=== PATIENT | female | born 1935 | race Caucasian/White ===

== ENCOUNTER 2020-01-16 09:24 | Inpatient (IN) | payer MEDICARE, BC ==
[2020-01-16] MEDS ORDERED: HYDROmorphone 0.5 MG/0.5 ML SYRINGE IVP PRN (13:22)
--- NOTE | 2020-01-16 14:36 | CONS ---
CONSULTATION CHIEF COMPLAINT: Preop cardiac evaluation. HISTORY OF PRESENT ILLNESS: This is an 84-year-old lady with history of permanent pacemaker, mild nonobstructive coronary artery disease, dyslipidemia, hypothyroidism, who was admitted to hospital with left hip fracture and Cardiology has been consulted for preop cardiac evaluation. At the time of my evaluation, patient appears comfortable at rest. She denies chest pain, difficulty in breathing, leg edema, PND or orthopnea. The patient has known coronary artery disease and then a cardiac catheterization in 2016 was found to have mild to moderate disease involving right coronary artery, but was otherwise within normal limits. I do not have an EKG on this admission. We are going to get one and I also gave him trying to get an echocardiogram done. But patient is stable to go through surgery. She does not have any cardiac symptoms and did not have any prior to coming in. Does not have leg edema. She is not short of breath. She is not having angina. Physical exam does not reveal aortic stenosis. The patient has a pacemaker and follows with a healthcare economics consultant that is at [facility]. PAST MEDICAL HISTORY: Significant for hypothyroidism, dyslipidemia, permanent pacemaker. Past medical history also includes aortic aneurysm. MEDICATIONS: Medications at home include Zocor 40 q. daily, Prilosec, Lexapro, K-Ina con, Coreg, Synthroid Imdur, Lasix, Plavix and aspirin. ALLERGIES: ALLERGIC TO SULFA. FAMILY HISTORY: Negative for premature coronary artery disease. SOCIAL HISTORY: Negative for smoking, EtOH abuse, or drug abuse. REVIEW OF SYSTEMS: HEENT is unremarkable.. CARDIAC as described above. RESPIRATORY as described above. GI negative. : Negative. ALLERGY/IMMUNOLOGY: Negative. SKIN negative. MUSCULOSKELETAL significant for hip fracture. PSYCHOSOCIAL negative. ENDOCRINE: Negative. DERM negative. CONSTITUTIONAL: Negative. ONCOLOGICAL negative. EXAM: The patient is comfortable at rest. Afebrile. Heart rate is 65 beats per minute. Blood pressure is 95/55, respiratory rate 18. There is no jugular venous distention. Carotid upstroke is normal. There is no bruit. Chest exam reveals good air entry bilaterally. Heart exam reveals first and second heart sounds. No gallop. No murmur. No rub. Abdomen is soft, nontender. Exam of extremities did not reveal any edema. Peripheral pulses are felt. LAB: I do not have any labs on her from this admission. An EKG done at the other hospital showed paced rhythm with secondary ST-T wave changes. ASSESSMENT: 1. Preop cardiac evaluation. 2. Mild nonobstructive coronary artery disease. 3. Status post permanent pacemaker. 4. History of aortic aneurysm. PLAN: The patient is stable to undergo left hip replacement at this time. I will obtain a 2D echo to document her LV function, but this should not delay her surgery. Go ahead and proceed with surgery tomorrow if you need to do it. Thank you for giving me the privilege to participate in the care of this pleasant lady. MMJOL / IJN: [id number] /
[2020-01-16] MEDS: SODIUM CHLORIDE 0.9% 1,000 ML IV SCH (17:26)
[2020-01-16] MEDS: POTASSIUM CHLORIDE ER 20 MEQ TAB.ER PO SCH (17:26)
[2020-01-16] MEDS: HYDROcodone/APAP 5-325MG 1 EACH TAB PO PRN ×2 (17:26→22:13)
[2020-01-16] MEDS: CARVEDILOL 6.25 MG TAB PO SCH (17:27)
[2020-01-16] MEDS: ATORVASTATIN 20 MG TAB PO SCH (17:27)
[2020-01-16] MEDS: FUROSEMIDE 20 MG TAB PO SCH (17:27)
--- NOTE | 2020-01-17 09:37 | P.HPOR ---
<Cezar Barillas - Last Filed: 01/17/20 09:28> History of Present Illness H&P Date: 01/17/20 Chief Complaint: Left hip pain status post fall Patient is a very pleasant 84-year-old female who is seen and examined at bedside for further evaluation for her known left intertrochanteric hip fr acture. Patient sustained a fall yesterday, 01/16/2020. Patient states she is unsure how or why she fell. She does not lose consciousness. She has had significant pain in her left hip since that time. She's been unable to ambulate since that time. She was taken to the [facility]. She was unable to have immediate treatment at that time. She was transferred to [facility]. She was seen and examined by cardiology and has been cleared for surgical intervention. Patient does have a history of pacemaker and stent placement. She is on Plavix for anticoagulation. She states she had been on Plavix previously which was discontinued and she was started on aspirin. Patient states after starting aspirin she experienced a TIA. Aspirin was stopped and she was restarted on Plavix. She was seen and examined yesterday at bedside by Dr. Fam. Surgery is planned for today, 01/17/2020, at 10 AM. Patient feels she is ready for surgical intervention is looking forward to surgery at her left hip. Surgery planned is a left intramedullary nail fixation for intertrochanteric hip fracture. Patient states she does have a walker and cane at home. She will need a prescription for a hospital bed at the time of discharge. She is planning for discharge home. She has lots of help at home. Patient's medical history also includes hypothyroidism and dyslipidemia. Appropriate labs were taken at [facility] and those reports were transferred with her to [facility]. Those lab results have been discussed with anesthesia. 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 History of Any Multi-Drug Resistant Organisms: None Reported Past Surgical History: Appendectomy, Bladder Surgery, Cardiac Ablation, Hernia Repair, Hysterectomy, Pacemaker Additional Past Surgical History / Comment(s): 06-21-15 LT SHOULDER ZEINA ARTHROPLASTY with galdamez resurfacing system,, rt ear drum rebuilt,pacemaker 2009 then generator change 11-30-13, ep study cardiac ablation Past Anesthesia/Blood Transfusion Reactions: No Reported Reaction Date of Last Stent Placement:: 2007 Type of Cardiac Device: Permanent Pacemaker Device Placement Date:: 11/30/13 Past Psychological History: No Psychological Hx Reported Smoking Status: Former smoker Past Alcohol Use History: None Reported Additional Past Alcohol Use History / Comment(s): per past medical hx smoked x 30 years 1 carton would last a week, quit [id number] Past Drug Use History: None Reported - Past Family History Mother Family Medical History: Diabetes Mellitus Additional Family Medical History / Comment(s): age 66 Father Family Medical History: Coronary Artery Disease (CAD) Additional Family Medical History / Comment(s): aneurysm Brother(s) Family Medical History: Cancer Medications and Allergies Home Medications Medication Instructions Recorded Confirmed Type Clopidogrel [Plavix] 75 mg PO DAILY@49902/04/15 01/16/20 History Levothyroxine Sodium [Synthroid] 100 mcg PO DAILY@49902/04/15 01/16/20 History Simvastatin [Zocor] 40 mg PO DAILY@169902/04/15 01/16/20 History Potassium Chloride [Klor-Con 20] 20 meq PO BID@0500,1700 08/30/16 01/16/20 History Aspirin EC [Ecotrin Low Dose] 81 mg PO DAILY@49901/16/20 01/16/20 History Carvedilol [Coreg] 6.25 mg PO BID@0500,169901/16/20 01/16/20 History Escitalopram Oxalate [Lexapro] 10 mg PO DAILY@49901/16/20 01/16/20 History Furosemide [Lasix] 20 mg PO BID@0500,169901/16/20 01/16/20 History Isosorbide Mononitrate ER [Imdur] 30 mg PO DAILY@49901/16/20 01/16/20 History Omeprazole [PriLOSEC] 40 mg PO DAILY@0500 01/16/20 01/16/20 History Allergies Allergy/AdvReac Type Severity Reaction Status Date / Time Sulfa (Sulfonamide Allergy Anaphylaxis Verified 01/16/20 11:58 Antibiotics) Physical Examination Physical exam: Patient is awake, alert, and oriented 3 Vital signs stable Good chest excursion with deep inspiration and expiration Left lower extremity is shortened and externally rotated Evidence of some bruising over the left posterior hip Pain with palpation of the left hip Significant pain with internal and external rotation of the left hip No pain with internal and external rotation of the right hip Neurovascularly intact bilateral lower extremities Dorsiflexion, plantarflexion, and extensor hallucis longus positive sustained bilaterally Calves are soft and supple; No signs or symptoms of DVT; No calf pain Assessment and Plan Assessment: Assessment: Left intertrochanteric hip fracture Left hip pain Status post fall Currently on anticoagulation History of pacemaker placement History of stent placement History of TIA Dyslipidemia Hypothyroidism (1) Intertrochanteric fracture of left hip Current Visit: Yes Status: Acute Code(s): S72.142A - DISPLACED INTERTROCHANTERIC FRACTURE OF LEFT FEMUR, INIT SNOMED Code(s): 778571197 (2) Status post fall Current Visit: Yes Status: Acute Code(s): Z91.81 - HISTORY OF FALLING SNOMED Code(s): 759374569 (3) Left hip pain Current Visit: Yes Status: Acute Code(s): M25.552 - PAIN IN LEFT HIP SNOMED Code(s): 73390902 (4) Current use of anticoagulant therapy Current Visit: Yes Status: Acute Code(s): Z79.01 - JAIL (CURRENT) USE OF ANTICOAGULANTS SNOMED Code(s): 416802792 (5) History of TIA (transient ischemic attack) Current Visit: Yes Status: Acute Code(s): Z86.73 - PRSNL HX OF TIA (TIA), AND CEREB INFRC W/O RESID DEFICITS SNOMED Code(s): 942306353 (6) Dyslipidemia Current Visit: Yes Status: Acute Code(s): E78.5 - HYPERLIPIDEMIA, UNSPECIFIED SNOMED Code(s): 999643824 (7) Hypothyroidism Current Visit: Yes Status: Acute Code(s): E03.9 - HYPOTHYROIDISM, UNSPECIFIED SNOMED Code(s): 10246913 (8) Presence of permanent cardiac pacemaker Current Visit: No Status: Acute Code(s): Z95.0 - PRESENCE OF CARDIAC PACEMAKER SNOMED Code(s): 431361800 Plan: Plan: 1. Patient has been seen and examined at bedside by Dr. Fam. Patient is also been discussed in detail with Dr. Fam. Patient does have evidence of a left intertrochanteric hip fracture. She is nothing by mouth status. Surgery is currently scheduled for today, 01/17/2020, at 10 AM. Patient states she is ready to proceed forward with surgical intervention. Patient is ready to proceed for surgical intervention as she feels it gives her the best opportunity have some improvement of her symptoms and help improve her ambulation. Patient has been seen and examined by cardiology and has been cleared for surgical intervention. Patient has been discussed in detail with a nestvanessa and recent lab testing performed at [facility] has been discussed with anesthesia in detail. Anesthesia is ready to proceed forward surgical intervention. We will continue to follow the patient closely during her admission. Patient does have a walker and cane at home to aid in ambulation. We discussed she will be given a prescription to obtain a hospital bed for at home use she may sleep on the first floor. Her bedroom is currently on the second floor. Following surgical intervention, patient may resume regular diet. Time with Patient: Greater than 30 (Including obtaining history, physical examination, reviewing of imaging, and dictation.) <Tobias Fam - Last Filed: 01/17/20 10:37> Assessment and Plan Plan: Reviewed and agree with above (amendments/corrections noted below). The patient was also seen and examined by me as well. S: Patient states that the injury occurred when trying to sit down on the toilet. She felt her leg start going out to the side and couldn't stop the fall. She denies antecedent hip pain. She did have a similar fall in the past where the leg 'went out' on her. She normally ambulates without the use of assistive devices but does have both cane and walker at home. O: Trace ecchymosis over the posterolateral aspect of the hip. Pain with logroll. Intact light touch sensation and gross motor function distally. A: Displaced left intertrochanteric femur fracture status post fall P: I discussed the diagnosis and radiographic findings with the patient. We reviewed the pertinent anatomy and pathophysiology of the fracture. We discussed treatment options and I explained the rationale behind surgical intervention. I recommended operative treatment in the form of closed reduction and cephalomedullary nailing. We discussed the surgical plan as well as the expected postoperative course. Risks and benefits were reviewed including (but not limited to) the risks of infection, bleeding, blood clots, anesthesia related complications and possible need for additional surgery. Questions were invited and answered. The patient expressed understanding and wishes to proceed with surgery. Thank you for allowing me to participate in the care of this patient. Tobias Fam D.O. [facility]
[2020-01-17] MEDS ORDERED: PROPOFOL 10 MG/ML 20 ML VIAL IV ONE (10:31)
[2020-01-17] MEDS ORDERED: fentaNYL (PF) 50 MCG/ML 2 ML AMP ONE (10:31)
[2020-01-17] MEDS ORDERED: GLYCOPYRROLATE 0.2 MG/ML 2 ML VIAL ONE (10:31)
[2020-01-17] MEDS ORDERED: MIDAZOLAM 2 MG/2 ML VIAL ONE (10:31)
[2020-01-17] MEDS ORDERED: LIDOCAINE 1% INJ 10MG/ML (20 ML MDV) ONE (10:31)
[2020-01-17] MEDS ORDERED: ROCURONIUM BROMIDE 10 MG/ML 5 ML VIAL IV ONE (10:31)
[2020-01-17] MEDS ORDERED: ePHEDrine SULFATE/0.9% NACL/PF 50 MG/5 ML SYRINGE IV ONE (10:31)
[2020-01-17] MEDS ORDERED: NEOSTIGMINE 1 MG/ML 10 ML VIAL ONE (10:31)
[2020-01-17] MEDS ORDERED: SUCCINYLCHOLINE CHLORIDE 100 MG/5 ML SYR IV ONE (10:31)
[2020-01-17] MEDS ORDERED: SODIUM CHLORIDE 0.9% 1,000 ML IV ONE (10:35)
[2020-01-17] MEDS ORDERED: LACTATED RINGERS 1,000 ML IV ONE ×2 (11:30→13:32)
[2020-01-17] MEDS ORDERED: LIDOCAINE 1%-EPI 1:100,000 20 ML VIAL SQ ONE (11:34)
[2020-01-17] MEDS ORDERED: ROPIVACAINE 5 MG/ML 30 ML VIAL MISCELLANE ONE (11:34)
[2020-01-17 11:51] VITALS: BMI 26.3
--- NOTE | 2020-01-17 12:06 | ECHOF ---
Referral Reason:CARDIAC SURGICAL CLEARANCE MEASUREMENTS -------- HEIGHT: 167.6 cm WEIGHT: 73.9 kg BP: RVIDd: 3.6 cm (< 3.3) IVSd: 0.9 cm (0.6 - 1.1) LVIDd: 4.4 cm (3.9 - 5.3) LVPWd: 1.1 cm (0.6 - 1.1) IVSs: 1.2 cm LVIDs: 3.0 cm LVPWs: 1.1 cm Ao Diam: 3.4 cm (2.0 - 3.7) AV Cusp: 2.1 cm (1.5 - 2.6) LA Diam: 4.0 cm (2.7 - 3.8) MV E Abraham: 0.47 m/s MV DecT: 214 ms MV A Abraham: 0.69 m/s MV E/A Ratio: 0.67 AR PHT: 698 ms RAP: 5.00 mmHg RVSP: 15.79 mmHg FINDINGS -------- Paced rhythm. This was a technically difficult study with suboptimal views. The left ventricular size is normal. There is mild concentric left ventricular hypertrophy. Overa ll left ventricular systolic function is low-normal with, an EF between 50 - 55 %. Left ventricular fillimg pressure cannot be estimated due to paced rhythm. The right ventricle is mildly enlarged. The left atrium is mildly dilated. The right atrium was not well visualized. 5.0mg of Lumason was utilized for enhancement of images The aortic valve is trileaflet and appears structurally normal. There is mild aortic regurgitation. The mitral valve was not well visualized. Mild mitral regurgitation is present. The tricuspid valve was not well visualized. Trace tricuspid regurgitation present. Right ventric ular systolic pressure is normal at < 35 mmHg. The pulmonic valve was not well visualized. The aortic root size is normal. IVC Not well visulized. There is a small, generalized pericardial effusion present. CONCLUSIONS -------- 1. Paced rhythm. 2. This was a technically difficult study with suboptimal views. 3. The left ventricular size is normal. 4. There is mild concentric left ventricular hypertrophy. 5. Overall left ventricular systolic function is low-normal with, an EF between 50 - 55 %. 6. Left ventricular fillimg pressure cannot be estimated due to paced rhythm. 7. The right ventricle is mildly enlarged. 8. The left atrium is mildly dilated. 9. The right atrium was not well visualized. 10. 5.0mg of Lumason was utilized for enhancement of images 11. The aortic valve is trileaflet and appears structurally normal. 12. There is mild aortic regurgitation. 13. The mitral valve was not well visualized. 14. Mild mitral regurgitation is present. 15. The tricuspid valve was not well visualized. 16. Trace tricuspid regurgitation present. 17. Right ventricular systolic pressure is normal at < 35 mmHg. 18. The pulmonic valve was not well visualized. 19. The aortic root size is normal. 20. IVC Not well visulized. 21. There is a small, generalized pericardial effusion present. A[employer]ENT[employer] MANAGER: Rosmery Deng RDCS
--- NOTE | 2020-01-17 12:52 | FL ---
FLUOROSCOPY 1.39 minutes of fluoroscopy time were utilized during left IM nailing. 2 images document the procedu re.
[2020-01-17] MEDS ORDERED: NALOXONE 0.4 MG/ML 1 ML VIAL IV PRN (13:01)
--- NOTE | 2020-01-17 13:39 | XR ---
EXAMINATION TYPE: XR Hip Limited LT , ONE VIEW DATE OF EXAM ORDERED: 01/17/2020 HISTORY: postop fx. COMPARISON: None. FINDINGS: Intramedullary mecca fixation and dynamic hip pinning of the left hip is been performed. Pos ition and alignment of the fracture fragments appears anatomic. IMPRESSION: STATUS POST DYNAMIC HIP PINNING OF THE LEFT HIP.
[2020-01-17] MEDS: ASPIRIN 81 MG PO SCH (13:41)
[2020-01-17] MEDS: CARVEDILOL 6.25 MG TAB PO SCH ×2 (13:41→16:36)
[2020-01-17] MEDS: FUROSEMIDE 20 MG TAB PO SCH ×2 (13:42→16:36)
[2020-01-17] MEDS: POTASSIUM CHLORIDE ER 20 MEQ TAB.ER PO SCH ×2 (13:42→16:36)
[2020-01-17 14:12] LABS: Basophils % (A) 0 %; Eosinophils # (A) 0.1 k/uL (0-0.7); Eosinophils % (A) 1 %; HCT 33.8 % (34.0-46.0); Lymphocytes % (A) 11 %; MCH 32.1 pg (25.0-35.0); MCHC 32.7 g/dL (31.0-37.0); MCV 98.2 fL (80.0-100.0); Mean Platelet Volume 8.9; Monocytes # (A) 0.4 k/uL (0-1.0); Monocytes % (A) 5 %; Neutrophils # (A) 7.6 k/uL (1.3-7.7); Neutrophils % (A) 82 %; Platelet Count 146 k/uL (150-450); RBC 3.44 m/uL (3.80-5.40); WBC 9.2 k/uL (3.8-10.6)
[2020-01-17] MEDS: PANTOPRAZOLE 40 MG TABLET PO SCH (16:36)
[2020-01-17] MEDS: ATORVASTATIN 20 MG TAB PO SCH (16:36)
[2020-01-17] MEDS: LEVOTHYROXINE 100 MCG TAB PO SCH (16:36)
[2020-01-17] MEDS: ISOSORBIDE MONONITRATE ER 30 MG TAB.ER.24H PO SCH (16:36)
[2020-01-17] MEDS: SODIUM CHLORIDE 0.9% 1,000 ML IV SCH (16:37)
[2020-01-17] MEDS: ESCITALOPRAM 10 MG TAB PO SCH (16:37)
--- NOTE | 2020-01-17 17:45 | P.OP ---
Date of Procedure: 01/17/20 Preoperative Diagnosis: Displaced left intertrochanteric femur fracture Postoperative Diagnosis: Displaced left intertrochanteric femur fracture Procedure(s) Performed: Closed reduction and cephalomedullary nailing of displaced left intertrochanteric femur fracture Implants: Synthes TFNA short proximal femoral nail, 130 12 mm x 170 mm; 100 mm helical blade and a 5.0 mm x 40mm distal locking screw Anesthesia: FIORELLA Surgeon: Tobias Fam Estimated Blood Loss (ml): 200 Pathology: other (Reamings from proximal femur) Condition: stable Disposition: PACU Indications for Procedure: The patient is a very pleasant 84-year-old female who sustained a displaced left intertrochanteric femur fracture after a mechanical fall at home. Surgical treatment was recommended. Risks and benefits were discussed, including (but not limited to) the risks of infection, bleeding (especially with her ASA and Plavix), anesthesia-related complications and blood clots. She expressed understanding and wished to proceed with surgery. Consent forms were signed. The surgical site was confirmed and marked preoperatively. Description of Procedure: The patient was brought to the operative suite by the anesthesia team. General anesthesia was administered uneventfully. The patient was transferred to the operating table and positioned supine. Both feet were secured in well-padded boots with the operative limb straight and the contralateral limb scissored and semi-extended. All bony prominences were padded in the typical fashion. Prophylactic antibiotics were administered. A time-out was performed, confirming patient identifiers, the operative side, site and procedure to be performed: all team members expressed agreement. The fracture was evaluated with intraoperative fluoroscopy. There was a large posteromedial wall fragment which included the lesser trochanter. Some comminution of the greater trochanter was noted as well. The fracture was manually reduced, confirmed on orthogonal images. The left lower extremity was then prepped and draped in a standard, sterile fashion. A small stab incision was made proximal to the greater trochanter and a guidewire was inserted. Fluoroscopy was used to localize the starting point at the tip of the greater trochanter. The initial incision did not afford satisfactory access to the starting point without undue tension on the skin and a second incision was made slightly more posteriorly. The wire was advanced into the proximal femur. The wire position was found to be suboptimal. The skin incision was extended and a second wire was inserted through a targeting guide, achieving better position (confirmed on orthogonal images). The first wire was removed. The reamer was inserted through a tissue protector and advanced to the level of the lesser trochanter under fluoroscopic guidance. The reamer and guidewire were removed. Based on the patient's anatomy and fracture pattern, a 12 mm short nail was selected. This was attached to the insertion handle and passed down the medullary canal. An incision was made laterally along the proximal thigh for placement of the cephalomedullary helical blade. A drill sleeve was inserted down to the lateral femoral cortex. A guidewire was advanced through the nail and into the femoral head. Position of the wire was confirmed on orthogonal views and adjusted to a satisfactory position. Measuring off the guidewire, a 100 mm blade was selected. A cannulated step drill was used and the blade was inserted over the guidewire to the appropriate depth. The set screw was tightened to lock the blade in place, then slightly loosened to allow for dynamic compression of the fracture. Compression was applied through the insertion cannula (visually confirmed on imaging). The guidewire was removed. Traction on the limb was released. A small incision was made for the distal screw. The drill sleeve was inserted and advanced to the lateral femoral cortex. The bone was drilled & measured. A 5 mm x 40 mm distal cortical screw was inserted. The insertion handle was removed. Final x-rays were taken to confirm fracture reduction and implant position. All wounds were irrigated thoroughly with normal saline. The subcutaneous tissues were closed in layers: #1 Vicryl for the fascia; interrupted 0 Vicryl and 2-0 Vicryl sutures for the deep and superficial subcutaneous tissues. The skin was closed with daquan. The operative sites were injected with local anaesthetic with epinephrine for adjunctive postoperative pain control and hemostasis. Sterile dressings were applied. All sponge, needle and instrument counts were correct at the end of the procedure. The patient tolerated the procedure well. She was transferred to a hospital bed and transported to the recovery room in stable condition.
[2020-01-17] MEDS: HYDROcodone/APAP 5-325MG 1 EACH TAB PO PRN (19:50)
[2020-01-18] MEDS: FUROSEMIDE 20 MG TAB PO SCH ×2 (04:43→18:19)
[2020-01-18] MEDS: ESCITALOPRAM 10 MG TAB PO SCH (04:43)
[2020-01-18] MEDS: ASPIRIN 81 MG PO SCH (04:43)
[2020-01-18] MEDS: LEVOTHYROXINE 100 MCG TAB PO SCH (04:43)
[2020-01-18] MEDS: ISOSORBIDE MONONITRATE ER 30 MG TAB.ER.24H PO SCH (04:43)
[2020-01-18] MEDS: PANTOPRAZOLE 40 MG TABLET PO SCH (04:44)
[2020-01-18] MEDS: POTASSIUM CHLORIDE ER 20 MEQ TAB.ER PO SCH ×2 (04:44→18:18)
[2020-01-18] MEDS: CARVEDILOL 6.25 MG TAB PO SCH ×4 (05:55→18:14)
[2020-01-18] MEDS: HYDROcodone/APAP 5-325MG 1 EACH TAB PO PRN ×3 (05:57→19:50)
[2020-01-18] MEDS: SODIUM CHLORIDE 0.9% 1,000 ML IV SCH (09:11)
[2020-01-18] MEDS: ENOXAPARIN 40 MG/0.4 ML SYRINGE SQ SCH (09:14)
--- NOTE | 2020-01-18 11:04 | P.PN ---
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 She follows with Dr. Gambino out of [facility]. She underwent closed reduction and nailing of a displaced left intertrochanteric femur fracture yesterday. She is seen and examined sitting up in bed in no acute distress. She denies symptoms of chest pain, shortness of breath, dizziness or palpitations. Blood pressure 87/55 heart rate 88 afebrile maintaining oxygen saturation on room air. Currently maintained on aspirin 81 mg daily, atorvastatin 20 mg daily, carvedilol 6.25 mg twice a day, Lasix 20 mg twice a day and Imdur 30 mg daily. Plavix has been held since admission. Pt states she has been on plavix for many years since having her TIA. Last PCI was 2005. GENERAL: Well-appearing, well-nourished and in no acute distress. NECK: Supple without JVD or thyromegaly. LUNGS: Breath sounds clear to auscultation bilaterally. Respiration equal and unlabored. No wheezes, rales or rhonchi. HEART: Regular rate and rhythm without murmurs, rubs or gallops. S1 and S2 heard. EXTREMITIES: Normal range of motion, no edema. No clubbing or cyanosis. Peripheral pulses intact. ASSESSMENT Left intertrochanteric femur fracture History of coronary artery disease s/p PCI 2005 with recent cath 2016 revealing mild non-obstructive disease Permanent pacemaker implantation secondary to tachy-juan j syndrome TIA, 2012 Hypertension Dyslipidemia PLAN There is no cardiac indication to resume plavix as her last PCI was 2005. Advised close follow up with her primary yarn winder on discharge. Stable for discharge from a cardiac perspective. Nurse Practitioner note has been reviewed, I agree with a documented findings and plan of care. Patient was seen and examined. Objective - Vital Signs Vital signs: Vital Signs Temp 98.4 F 01/18/20 04:40 Pulse 83 01/18/20 04:40 Resp 16 01/18/20 04:40 BP 94/57 01/18/20 05:55 Pulse Ox 96 01/18/20 04:40 Intake & Output 01/17/20 01/18/20 01/18/20 18:59 06:59 18:59 Intake Total 2150 290 Output Total 400 500 Balance 1750 -210 Weight 73.936 kg Intake: IV 2150 Intake, IV Titration 50 Amount ceFAZolin 2 gm In Sodium 50 Chloride 0.9% 50 ml @ 100 mls/hr IVPB Q8HR [facility] Rx# :[id number] Oral 0 240 Output: Urine 200 500 Estimated Blood Loss 200 Other: Voiding Method Indwelling Catheter Indwelling Catheter - Labs CBC & Chem 7: 01/17/20 13:55 Labs: Abnormal Lab Results - Last 24 Hours (Table) 01/17/20 Range/Units 13:55 RBC 3.44 L (3.80-5.40) m/uL Hgb 11.0 L (11.4-16.0) gm/dL Hct 33.8 L (34.0-46.0) % Plt Count 146 L (150-450) k/uL
[2020-01-18] MEDS: ATORVASTATIN 20 MG TAB PO SCH (18:19)
--- NOTE | 2020-01-18 18:29 | P.PN ---
<Subha Glass - Last Filed: 01/18/20 18:29> Subjective Progress Note Date: 01/18/20 This patient is an 84-year-old female that is status-post closed reduction and IM nailing of displaced left intertrochanteric femur fracture on 01/17/[address] Fam. The patient is examined bedside this morning. She states she is experiencing minimal pain in the left hip. She has not been up with physical therapy. She overall feels well this morning. She denies chest pain, shortness of breath, nausea, vomiting, fevers, chills. She is anticipating discharge home today with help from her family. She has no new complaints today. Vital signs stable. Per nursing, the patient's O2 saturations were dropping into the low 80s earlier this afternoon. Patient is not on home oxygen. Patient remained asymptomatic, per nursing. Objective - Vital Signs Vital signs: Vital Signs Temp 98.6 F 01/18/20 13:19 Pulse 77 01/18/20 13:19 Resp 17 01/18/20 13:19 BP 115/64 01/18/20 13:19 Pulse Ox 85 L 01/18/20 13:19 Intake & Output 01/17/20 01/18/20 01/18/20 18:59 06:59 18:59 Intake Total 2150 290 Output Total 400 500 Balance 1750 -210 Weight 73.936 kg Intake: IV 2150 Intake, IV Titration 50 Amount ceFAZolin 2 gm In Sodium 50 Chloride 0.9% 50 ml @ 100 mls/hr IVPB Q8HR [facility] Rx# :[id number] Oral 0 240 Output: Urine 200 500 Estimated Blood Loss 200 Other: Voiding Method Indwelling Catheter Indwelling Catheter Indwelling Catheter - Exam On examination, the patient is sitting up in bed in no apparent distress. She is alert and orientated x3. Her breathing appears non-labored. On inspection of the left hip, there is a clean, dry, intact surgical dressing in place with no drainage. No surrounding erythema, warmth, fluctuance. There are no signs of infection. The left lower extremity is warm and well perfused with brisk capillary refill distally. Dorsalis pedis pulse +2. The patient has good strength and range of motion of her left ankle. Motor and sensory function appear to be intact of the left lower extremity. The calf is soft and nontender to palpation. - Labs CBC & Chem 7: 01/17/20 13:55 Assessment and Plan Assessment: Status-post closed reduction and IM nailing of displaced left intertrochanteric femur fracture on 01/17/20. Post-operative day #1. Plan: - Weight bearing as tolerated on operative leg. Up with assistance. Up with a walker. - Physical therapy for gait and balance training. - Pain management as needed. - Lovenox 40mg for DVT prophylaxis. 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 Attempted to contact [facility] regarding recommendations on re- starting plavix or discontinuing. Per Anita Andrews NP, patient does not need to re-start plavix from a cardiology standpoint. We will plan for Lovenox 40mg x 10 days, with transition to aspirin 325mg BID for an additional 30 days. - Internal medicine consulted due to lowering O2 sats. Appreciate recommendations. - Anticipate discharge home tomorrow, if clearance from internal medicine. Patient discussed with Dr. Fam. <Tobias Fam - Last Filed: 01/19/20 11:35> Objective - Vital Signs Vital signs: Vital Signs Temp 98.1 F 01/19/20 05:23 Pulse 71 01/19/20 05:23 Resp 18 01/19/20 05:23 BP 108/67 01/19/20 05:23 Pulse Ox 96 01/19/20 05:23 Intake & Output 01/18/20 01/19/20 01/19/20 18:59 06:59 18:59 Intake Total 1060 480 Balance 1060 480 Intake: Oral 1060 480 Other: Voiding Method Bedside Commode Bedside Commode Bedside Commode # Voids 3 2 # Bowel Movements 0 - Labs CBC & Chem 7: 01/19/20 06:56 Labs: Abnormal Lab Results - Last 24 Hours (Table) 01/17/20 01/19/20 01/19/20 Range/Units 09:59 05:51 06:56 RBC 2.15 L 2.14 L (3.80-5.40) m/uL Hgb 6.9 L* D 7.0 L (11.4-16.0) gm/dL Hct 21.0 L 21.0 L (34.0-46.0) % Plt Count 133 L 146 L (150-450) k/uL Crossmatch See Detail Assessment and Plan Plan: Reviewed and agree with above (amendments/corrections noted below). The patient was subsequently seen and examined by me as well. S: The patient was able to get up to the bedside commode. She states that the pain was manageable and she was able to wait on the operative leg. O: Dressings are clean, dry and intact. No strikethrough. Evolving hematoma posterior to the greater trochanter. This has a firmer consistency, rather than fluid/fluctuant. A: Postoperative day #1 status post cephalo-medullary nailing of left intertrochanteric femur fracture P: The above plan was discussed in detail. Plan for discharge home once home care arrangements have been finalized. Tobias Fam D.O. [facility]
[2020-01-18] MEDS: DOCUSATE 100 MG CAP PO SCH (19:50)
--- NOTE | 2020-01-18 19:53 | XR ---
EXAMINATION TYPE: XR chest 2V DATE OF EXAM: 01/18/2020 COMPARISON: 08/30/2016 INDICATION: Short of breath TECHNIQUE: Frontal and lateral views of the chest are obtained. FINDINGS: The heart size is normal. The pulmonary vasculature is normal. The lungs are clear. Pacemaker overlies left chest. There is a prior left humeral prosthesis. IMPRESSION: 1. No acute pulmonary process.
[2020-01-19] MEDS: DOCUSATE 100 MG CAP PO SCH ×2 (04:50→20:19)
[2020-01-19] MEDS: ISOSORBIDE MONONITRATE ER 30 MG TAB.ER.24H PO SCH (04:50)
[2020-01-19] MEDS: CARVEDILOL 6.25 MG TAB PO SCH ×3 (04:50→18:06)
[2020-01-19] MEDS: ESCITALOPRAM 10 MG TAB PO SCH (04:50)
[2020-01-19] MEDS: PANTOPRAZOLE 40 MG TABLET PO SCH (04:50)
[2020-01-19] MEDS: LEVOTHYROXINE 100 MCG TAB PO SCH (04:50)
[2020-01-19] MEDS: ASPIRIN 81 MG PO SCH (04:50)
[2020-01-19] MEDS: POTASSIUM CHLORIDE ER 20 MEQ TAB.ER PO SCH ×2 (04:51→18:06)
[2020-01-19] MEDS: FUROSEMIDE 20 MG TAB PO SCH ×2 (04:51→18:05)
[2020-01-19] MEDS: HYDROcodone/APAP 5-325MG 1 EACH TAB PO PRN ×2 (04:51→20:23)
[2020-01-19] MEDS: SODIUM CHLORIDE 0.9% 1,000 ML IV SCH (05:25)
[2020-01-19 06:08] LABS: Basophils % (A) 0 %; Eosinophils # (A) 0.1 k/uL (0-0.7); Eosinophils % (A) 2 %; Lymphocytes # (A) 1.2 k/uL (1.0-4.8); Lymphocytes % (A) 23 %; MCH 32.1 pg (25.0-35.0); MCHC 32.9 g/dL (31.0-37.0); MCV 97.5 fL (80.0-100.0); Mean Platelet Volume 8.8; Monocytes # (A) 0.3 k/uL (0-1.0); Monocytes % (A) 6 %; Neutrophils # (A) 3.6 k/uL (1.3-7.7); Neutrophils % (A) 67 %; Platelet Count 133 k/uL (150-450); RBC 2.15 m/uL (3.80-5.40); RDW 12.9 % (11.5-15.5); WBC 5.3 k/uL (3.8-10.6)
[2020-01-19 06:12] LABS: HGB 6.9 gm/dL (11.4-16.0)
[2020-01-19 07:33] LABS: Basophils % (A) 0 %; Eosinophils # (A) 0.1 k/uL (0-0.7); Eosinophils % (A) 2 %; Lymphocytes # (A) 1.2 k/uL (1.0-4.8); Lymphocytes % (A) 21 %; MCH 32.8 pg (25.0-35.0); MCHC 33.5 g/dL (31.0-37.0); Mean Platelet Volume 8.1; Monocytes # (A) 0.4 k/uL (0-1.0); Monocytes % (A) 7 %; Neutrophils # (A) 3.9 k/uL (1.3-7.7); Neutrophils % (A) 68 %; Platelet Count 146 k/uL (150-450); RBC 2.14 m/uL (3.80-5.40); RDW 12.9 % (11.5-15.5); WBC 5.7 k/uL (3.8-10.6)
[2020-01-19] MEDS: ENOXAPARIN 40 MG/0.4 ML SYRINGE SQ SCH (08:41)
[2020-01-19] MEDS: FERROUS SULFATE 325 MG TAB PO SCH ×2 (08:41→18:06)
--- NOTE | 2020-01-19 09:48 | P.PN ---
Subjective Progress Note Date: 01/19/20 Principal diagnosis: Left hip fracture Patient is seen at bedside this morning. She is postop day #2 from left IT/gamma nail for left IT hip fracture. She has pain at the surgical site as expected but denies any new complaints. He denies numbness, tingling or calf pain. Review of systems is negative for fever, chills, chest pain, shortness of breath or other Objective - Vital Signs Vital signs: Vital Signs Temp 98.1 F 01/19/20 05:23 Pulse 71 01/19/20 05:23 Resp 18 01/19/20 05:23 BP 108/67 01/19/20 05:23 Pulse Ox 96 01/19/20 05:23 Intake & Output 01/18/20 01/19/20 01/19/20 18:59 06:59 18:59 Intake Total 1060 480 Balance 1060 480 Intake: Oral 1060 480 Other: Voiding Method Bedside Commode Bedside Commode Bedside Commode # Voids 3 2 # Bowel Movements 0 - Exam Inspection reveals a benign surgical wound. There is no active bleeding or drainage. Neurovascular status is intact throughout the lower extremity with motor and sensation fully intact. Calf is soft and nontender. 2+ dorsalis pedis pulse and less than 2 second cap refill is present. - Constitutional General appearance: Present: no acute distress - Labs CBC & Chem 7: 01/19/20 06:56 Labs: Abnormal Lab Results - Last 24 Hours (Table) 01/17/20 01/19/20 01/19/20 Range/Units 09:59 05:51 06:56 RBC 2.15 L 2.14 L (3.80-5.40) m/uL Hgb 6.9 L* D 7.0 L (11.4-16.0) gm/dL Hct 21.0 L 21.0 L (34.0-46.0) % Plt Count 133 L 146 L (150-450) k/uL Crossmatch See Detail Assessment and Plan (1) Intertrochanteric fracture of left hip Narrative/Plan: She will continue with routine postop orthopedic protocol including pain management, wound care, PT, DVT prophylaxis and medical management. Her HGb was 6.9 this am. 1 unit of PRBCs ordered. Expect that she will transfer to home later today or tomorrow if ok with IM Current Visit: Yes Status: Acute Priority: Medium Code(s): S72.142A - DISPLACED INTERTROCHANTERIC FRACTURE OF LEFT FEMUR, INIT SNOMED Code(s): 667932244 Time with Patient: Less than 30
--- NOTE | 2020-01-19 10:59 | P.CONS ---
History of Present Illness - Reason for Consult Shortness of breath - History of Present Illness 84-year-old female was admitted for Hip fracture after fall patient underwent closed reduction and nailing of the left intertrochanteric fracture. Patient was extensively evaluated at the fall as head CT did not show any intracranial hemorrhage. Patient blood pressure was low yesterday patient hemoglobin has come down to below 7. Chest x-ray did not show any significant abnormality physical exam did not show any evidence of COPD as CHF. Patient does have history of coronary artery disease with the stenting in 2005. Patient appeared doesn't appear to have any history of congestive heart failure chronic systolic and diastolic but patient is on Lasix or pedal edema. Patient blood pressure is low because of which I changed to 20 mg only on as-needed basis or pedal edema same thing with the potassium whenever she takes Lasix patient will take potassium. Patient does have history of hemorrhoids and constipation since patient is going home on [place] which she is able to tolerate here, I'm adding s lisa along with a Dulcolax suppository. Patient was last to take Tylenol and avoid the [place] if she can. Patient is passing gas did not move her bowel yet. Patient is being discharged on Lovenox for DVT prophylaxis patient is already in aspirin as had a cardiac catheterization isn't 2005 there is no need for Plavix which will be discontinued. Her shortness of breath completely resolved. Patie nt denied any cough fever chills Review of Systems REVIEW OF SYSTEMS: CONSTITUTIONAL: No fever, no malaise, no fatigue. HEENT: No recent visual problems or hearing problems. Denied any sore throat. CARDIOVASCULAR: No chest pain, orthopnea, PND, no palpitations, no syncope. PULMONARY: no cough, no hemoptysis. GASTROINTESTINAL: No diarrhea, no nausea, no vomiting, no abdominal pain. NEUROLOGICAL: No headaches, no weakness, no numbness. HEMATOLOGICAL: Denies any bleeding or petechiae. GENITOURINARY: Denies any burning micturition, frequency, or urgency. MUSCULOSKELETAL/RHEUMATOLOGICAL: Denies any joint pain, swelling, or any muscle pain. ENDOCRINE: Denies any polyuria or polydipsia. The rest of the 14-point review of systems is negative. Past Medical History Past Medical History: CVA/TIA, Hyperlipidemia, Hypertension, Osteoarthritis (OA), Thyroid Disorder Additional Past Medical History / Comment(s): Obesity, hyperlipidemia, hypertension, osteoarthritis, hypothyroidism, pacemaker insertion for a questionable tachybradycardia syndrome, TIA back in 2013, peripheral vascular disease, minimal coronary artery disease with nonocclusive disease based on the cardiac catheterization was done and 2016 and the patient was found to have a 30-40% lesion in the right coronary artery. History of Any Multi-Drug Resistant Organisms: None Reported Past Surgical History: Appendectomy, Bladder Surgery, Cardiac Ablation, Hernia Repair, Hysterectomy, Pacemaker Additional Past Surgical History / Comment(s): 06-21-15 LT SHOULDER ZEINA ARTHROPLASTY with galdamez resurfacing system,, rt ear drum rebuilt,pacemaker 2009 then generator change 11-30-13, ep study cardiac ablation Past Anesthesia/Blood Transfusion Reactions: No Reported Reaction Date of Last Stent Placement:: 2007 Type of Cardiac Device: Permanent Pacemaker Device Placement Date:: 11/30/13 Past Psychological History: No Psychological Hx Reported Smoking Status: Former smoker Past Alcohol Use History: None Reported Additional Past Alcohol Use History / Comment(s): per past medical hx smoked x 30 years 1 carton would last a week, quit [id number] Past Drug Use History: None Reported - Past Family History Mother Family Medical History: Diabetes Mellitus Additional Family Medical History / Comment(s): age 66 Father Family Medical History: Coronary Artery Disease (CAD) Additional Family Medical History / Comment(s): aneurysm Brother(s) Family Medical History: Cancer Medications and Allergies Home Medications Medication Instructions Recorded Confirmed Type Levothyroxine Sodium [Synthroid] 100 mcg PO DAILY@0500 02/04/15 01/16/20 History Simvastatin [Zocor] 40 mg PO DAILY@17002/04/15 01/16/20 History Potassium Chloride [Klor-Con 20] 20 meq PO BID@0500,1700 08/30/16 01/16/20 History Aspirin EC [Ecotrin Low Dose] 81 mg PO DAILY@05001/16/20 01/16/20 History Carvedilol [Coreg] 6.25 mg PO BID@0500,17001/16/20 01/16/20 History Escitalopram Oxalate [Lexapro] 10 mg PO DAILY@0500 01/16/20 01/16/20 History Furosemide [Lasix] 20 mg PO BID@0500,17001/16/20 01/16/20 History Isosorbide Mononitrate ER [Imdur] 30 mg PO DAILY@0500 01/16/20 01/16/20 History Omeprazole [PriLOSEC] 40 mg PO DAILY@0500 01/16/20 01/16/20 History Aspirin 325 mg PO BID 30 Days #60 tab 01/18/20 Rx Enoxaparin [Lovenox] 40 mg SQ DAILY 10 Days #10 syringe 01/18/20 Rx Hydrocodone/Acetaminophen [[place] 1 tab PO Q6H PRN 7 Days #28 tab 01/18/20 Rx 5-325] Acetaminophen Tab [Tylenol] 650 mg PO Q6H #30 tab 01/19/20 Rx Bisacodyl [Dulcolax] 10 mg RECTAL DAILY PRN #20 supp 01/19/20 Rx Sennosides [Senna] 8.6 mg PO DAILY PRN #30 tablet 01/19/20 Rx Allergies Allergy/AdvReac Type Severity Reaction Status Date / Time Sulfa (Sulfonamide Allergy Anaphylaxis Verified 01/16/20 11:58 Antibiotics) Physical Exam Vitals: Vital Signs Temp Pulse Pulse Resp BP Pulse Ox 01/19/20 05:23 98.1 F 71 18 108/67 96 01/19/20 00:00 16 01/18/20 21:03 98.5 F 75 16 104/66 97 01/18/20 13:19 98.6 F 77 17 115/64 85 L Intake and Output 01/18/20 01/19/20 01/19/20 22:59 06:59 14:59 Intake Total 1300 240 Balance 1300 240 Intake: Oral 1300 240 Other: Voiding Method Bedside Commode Bedside Commode Bedside Commode # Voids 1 2 # Bowel Movements 0 PHYSICAL EXAMINATION: GENERAL: The patient is alert and oriented x3, not in any acute distress. Well developed, well nourished. HEENT: Pupils are round and equally reacting to light. EOMI. No scleral icterus. No conjunctival pallor. Normocephalic, atraumatic. No pharyngeal erythema. No thyromegaly. CARDIOVASCULAR: S1 and S2 present. No murmurs, rubs, or gallops. PULMONARY: Chest is clear to auscultation, no wheezing or crackles. ABDOMEN: Soft, nontender, nondistended, normoactive bowel sounds. No palpable organomegaly. MUSCULOSKELETAL: No joint swelling or deformity. EXTREMITIES: No cyanosis, clubbing, or pedal edema. NEUROLOGICAL: Gross neurological examination did not reveal any focal deficits. SKIN: No rashes. Results CBC & Chem 7: 01/19/20 06:56 Labs: Abnormal Lab Results - Last 24 Hours (Table) 01/17/20 01/19/20 01/19/20 Range/Units 09:59 05:51 06:56 RBC 2.15 L 2.14 L (3.80-5.40) m/uL Hgb 6.9 L* D 7.0 L (11.4-16.0) gm/dL Hct 21.0 L 21.0 L (34.0-46.0) % Plt Count 133 L 146 L (150-450) k/uL Crossmatch See Detail Assessment and Plan Plan: Shortness of breath most probably etiology being acute blood loss anemia from a recent surgery and fall. There is no evidence of intercranial hemorrhage. There is no significant evidence of any carpal primary pathology clinically or radiologically. My suspicion is low for pulmonary embolism patient is being discharged on Lovenox for DVT prophylaxis and aspirin as well. 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
--- NOTE | 2020-01-19 16:07 | CDI ---
Documentation Clarification Form Date: 01/19/2020 03:42:17 PM From: Samina Devries RN, CCDS Admit Date: 01/16/2020 11:24:00 AM Patient Name: Cris Graves Visit Number: [id number] Discharge Date: ATTENTION: The Clinical Documentation Specialists (CDI) and [facility] Coding Staff appreciate your assistance in clarifying documentation. Please respond to the clarification below the line at the bottom and electronically sign. The CDI & [facility] Coding staff will review the response and follow-up if needed. Please note: Queries are made part of the Legal Health Record. If you have any questions, please contact the author of this message via ITS. Dr. Yanet Gonzales 01/18 acute blood loss anemia is documented in the medical consult progress note, further clarification is requested. Patients Admitting Diagnosis: Displaced left intertrochanteric femur fracture Post-Operative Diagnosis: Same Procedure performed: Closed reduction and cephalomedullary nailing of displaced left intertrochanteric femur fracture History/Risk Factors: TIA, Hypertension Osteoarthritis. Coronary artery disease Clinical Indicators: 84-year-old female who present on 01/15 status post fall with left hip pain. She was ruled in for a left intertrochanteric hip fracture. On 01/16 she had a closed reduction and cephalomedullary nailing of displaced left intertrochanteric femur fracture. She was on Plavix but has been held since admission. Labs 01/16: HGB 11.0, HCT 33.8 Labs 01/18: HGB 7.0, HCT 21.0 Treatment: Transfuse 1 unit packed red blood cells In order to accurately reflect this patients severity of illness, please clarify if the acute blood loss anemia from recent surgery is: -is an expected outcome of the surgical procedure -is a complication of surgical procedure -is related to co-morbid condition(s) of -Other please specify -Unable to determine (Last Revision: November 2019) is an expected outcome of the surgical procedure MTDD
[2020-01-19 17:45] LABS: Basophils % (A) 0 %; Eosinophils # (A) 0.1 k/uL (0-0.7); Eosinophils % (A) 2 %; HCT 25.7 % (34.0-46.0); HGB 8.4 gm/dL (11.4-16.0); Lymphocytes # (A) 1.4 k/uL (1.0-4.8); Lymphocytes % (A) 25 %; MCH 30.8 pg (25.0-35.0); MCHC 32.4 g/dL (31.0-37.0); Monocytes # (A) 0.4 k/uL (0-1.0); Monocytes % (A) 7 %; Neutrophils # (A) 3.4 k/uL (1.3-7.7); Neutrophils % (A) 63 %; Platelet Count 157 k/uL (150-450); RBC 2.71 m/uL (3.80-5.40); WBC 5.4 k/uL (3.8-10.6)
[2020-01-19] MEDS: ATORVASTATIN 20 MG TAB PO SCH (18:05)
[2020-01-20 04:37] VITALS: RESP 18
[2020-01-20] MEDS: PANTOPRAZOLE 40 MG TABLET PO SCH (04:37)
[2020-01-20] MEDS: CARVEDILOL 6.25 MG TAB PO SCH (04:37)
[2020-01-20] MEDS: LEVOTHYROXINE 100 MCG TAB PO SCH (04:38)
[2020-01-20] MEDS: POTASSIUM CHLORIDE ER 20 MEQ TAB.ER PO SCH (04:38)
[2020-01-20] MEDS: FUROSEMIDE 20 MG TAB PO SCH (04:38)
[2020-01-20] MEDS: SODIUM CHLORIDE 0.9% 1,000 ML IV SCH (04:38)
[2020-01-20] MEDS: ASPIRIN 81 MG PO SCH (04:38)
[2020-01-20] MEDS: ESCITALOPRAM 10 MG TAB PO SCH ×2 (04:38→07:57)
[2020-01-20] MEDS: ISOSORBIDE MONONITRATE ER 30 MG TAB.ER.24H PO SCH (04:38)
[2020-01-20] MEDS: HYDROcodone/APAP 5-325MG 1 EACH TAB PO PRN ×2 (07:57→13:56)
[2020-01-20] MEDS: ENOXAPARIN 40 MG/0.4 ML SYRINGE SQ SCH (07:57)
[2020-01-20] MEDS: DOCUSATE 100 MG CAP PO SCH (07:57)
[2020-01-20] MEDS: FERROUS SULFATE 325 MG TAB PO SCH (07:57)
[2020-01-20 11:56] VITALS: BP 96/60; PULSE 72; TEMP 98.4
--- NOTE | 2020-01-20 12:50 | P.PN ---
Subjective Progress Note Date: 01/20/20 Principal diagnosis: 84-year-old female was admitted for Hip fracture after fall patient underwent closed reduction and nailing of the left intertrochanteric fracture. Patient was extensively evaluated at the fall as head CT did not show any intracranial hemorrhage. Patient blood pressure was low yesterday patient hemoglobin has come down to below 7. Chest x-ray did not show any significant abnormality physical exam did not show any evidence of COPD as CHF. Patient does have history of coronary artery disease with the stenting in 2005. Patient appeared doesn't appear to have any history of congestive heart failure chronic systolic and diastolic but patient is on Lasix or pedal edema. Patient blood pressure is low because of which I changed to 20 mg only on as-needed basis or pedal edema same thing with the potassium whenever she takes Lasix patient will take pot assium. Patient does have history of hemorrhoids and constipation since patient is going home on [place] which she is able to tolerate here, I'm adding senna along with a Dulcolax suppository. Patient was last to take Tylenol and avoid the [place] if she can. Patient is passing gas did not move her bowel yet. Patient is being discharged on Lovenox for DVT prophylaxis patient is already in aspirin as had a cardiac catheterization isn't 2005 there is no need for Plavix which will be discontinued. Her shortness of breath completely resolved. Patient denied any cough fever chills 01/20/2020 Patient is seen and evaluated and follow-up stating that she feels much better today. Patient's hemoglobin was less than 7 yesterday requiring 1 unit of PRBCs. Patient was having some mild shortness of breath possibly due to acute blood loss anemia. Patient states that her shortness of breath has resolved. No reports of chest pain, shortness of breath, or palpitations. Is afebrile. No reports of nausea or vomiting and patient is tolerating diet. Patient states she is being discharged today to home with home care as she is refusing rehab. Patient will continue on aspirin and Plavix is being discontinued. Objective - Vital Signs Vital signs: Vital Signs Temp 98.4 F 01/20/20 11:35 Pulse 72 01/20/20 11:35 Resp 18 01/20/20 11:35 BP 96/60 01/20/20 11:35 Pulse Ox 95 01/20/20 11:35 Intake & Output 01/19/20 01/20/20 01/20/20 18:59 06:59 18:59 Intake Total 620 240 Balance 620 240 Intake: Oral 240 Blood Product 620 Rc As-1 Unit 310 [id number] Other: Voiding Method Bedside Commode Bedside Commode # Voids 3 3 - Exam GENERAL: The patient is alert and oriented x3, not in any acute distress. Well developed, well nourished. HEENT: Pupils are round and equally reacting to light. EOMI. No scleral icterus. No conjunctival pallor. Normocephalic, atraumatic. No pharyngeal erythema. No thyromegaly. CARDIOVASCULAR: S1 and S2 present. No murmurs, rubs, or gallops. PULMONARY: Chest is clear to auscultation, no wheezing or crackles. ABDOMEN: Soft, nontender, nondistended, normoactive bowel sounds. No palpable organomegaly. MUSCULOSKELETAL: No joint swelling or deformity. EXTREMITIES: No cyanosis, clubbing, or pedal edema. NEUROLOGICAL: Gross neurological examination did not reveal any focal deficits. SKIN: No rashes. - Labs CBC & Chem 7: 01/19/20 16:23 Labs: Abnormal Lab Results - Last 24 Hours (Table) 01/17/20 01/19/20 Range/Units 09:59 16:23 RBC 2.71 L (3.80-5.40) m/uL Hgb 8.4 L (11.4-16.0) gm/dL Hct 25.7 L (34.0-46.0) % Crossmatch See Detail Assessment and Plan Assessment: -Shortness of breath most probably etiology being acute blood loss anemia from a recent surgery and fall. There is no evidence of intercranial hemorrhage. There is no significant evidence of any primary pathology clinically or radiologically. My suspicion is low for pulmonary embolism patient is being discharged on Lovenox for DVT prophylaxis and aspirin as well. Patient received 1 unit of PRBC transfusion yesterday -Acute blood loss anemia from recent surgery is an expected outcome; no reports of active bleeding noted. Recheck hemoglobin was 8.4 status post transfusion -Coronary artery disease patient had stenting more than 10 years ago will not require any Plavix. 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 Patient will continue with aspirin and Lovenox for DVT prophylaxis. Patient will follow-up with her primary care provider along with Dr. Fam in the outpatient setting in 2 weeks for surgical follow-up. Will continue to follow while hospitalized. Patient is planning on discharge today.
--- NOTE | 2020-01-20 13:42 | P.DS ---
Providers Date of admission: 01/16/20 11:24 Expected date of discharge: 01/20/20 Attending physician: Tobias Fam DO Consults: 01/16/20 12:28 Consult Physician Routine Consulting Provider: Adam Bond Consult Reason/Comments: surgical clearance, pacemaker, plavix Do you want consulting provider notified?: Already Contacted 01/18/20 13:40 Consult Physician Routine Consulting Provider: Yanet Gonzales Consult Reason/Comments: medical Do you want consulting provider notified?: Already Contacted Primary care physician: Stated None Hospital Course: This patient is an 84-year-old female with past medical history of CAD status- post PCI, permanent pacemaker, hypothyroidism and dyslipidemia that presented to [facility] ER on 01/16/20 after falling and sustained injury to the left hip. She was initially taken to [facility], where immediate treatment was no available, therefore patient was transferred to [facility] ER. X- rays of the left hip revealed a left intertrochanteric femur fracture. Patient was admitted under the care of Dr. Fam for surgical fixation of her left hip fracture, with consults placed to internal medicine and cardiology. Patient underwent a closed reduction and IM nailing of displaced left intertrochanteric femur fracture on 01/17/20. Procedure is performed without complication or sequelae. Patient received 1 unit of PRBCs yesterday per internal medicine. Patient's hemoglobin following transfusion is 8.4. Labs and vital signs are stable on postoperative day #2. Patient is examined bedside this morning. Patient states she is feeling well with minimal pain in the left hip. She has been up with physical therapy today. She is tolerating her diet well. She has not yet had a bowel moment postoperatively, although she denies abdominal pain. She states she would like to be discharged home, we discussed the benefit of rehab placement, although the patient refuses and would like to return home at discharge. The patient denies chest pain, shortness of breath, nausea, vomiting, fevers, chills. Overall she feels well. She has no new complaints today. Vital signs stable. On examination, the patient is sitting up in a bedside chair in no apparent distress. She is alert and oriented 3. On inspection of the left hip, there are clean, dry, intact surgical dressings in place. There is no drainage or bleeding through the dressings. There is minimal pain on palpation of the left hip. Mild swelling of the left thigh. Patient has good strength and range of motion of the left ankle. Motor and sensory function appear to be intact to left lower extremity. Left lower extremities warm and well perfused with brisk capillary refill distally. Dorsalis pedis pulse +2. Bilateral calves are soft and nontender to palpation. The patient is discharged home today, pending medical clearance. Please see med rec for accurate list of discharge medications. Plan - Discharge Summary Discharge Rx Participant: No New Discharge Prescriptions: New Hydrocodone/Acetaminophen [Tibbie 5-325] 1 tab PO Q6H PRN 7 Days #28 tab PRN Reason: Pain Aspirin 325 mg PO BID 30 Days #60 tab Enoxaparin [Lovenox] 40 mg SQ DAILY 10 Days #10 syringe Bisacodyl [Dulcolax] 10 mg RECTAL DAILY PRN #20 supp PRN Reason: Constipation Sennosides [Senna] 8.6 mg PO DAILY PRN #30 tablet PRN Reason: Constipation Acetaminophen Tab [Tylenol] 650 mg PO Q6H #30 tab Furosemide [Lasix] 20 mg PO DAILY PRN tab PRN Reason: Edema Continue Simvastatin [Zocor] 40 mg PO DAILY@1700 Levothyroxine Sodium [Synthroid] 100 mcg PO DAILY@0500 Omeprazole [PriLOSEC] 40 mg PO DAILY@0500 Escitalopram Oxalate [Lexapro] 10 mg PO DAILY@0500 Carvedilol [Coreg] 6.25 mg PO BID@0500,1700 Isosorbide Mononitrate ER [Imdur] 30 mg PO DAILY@0500 Aspirin EC [Ecotrin Low Dose] 81 mg PO DAILY@0500 Changed Potassium Chloride [Klor-Con 20] 20 meq PO DAILY #0 Discontinued Clopidogrel [Plavix] 75 mg PO DAILY@0500 Furosemide [Lasix] 20 mg PO BID@0500,1700 Discharge Medication List Levothyroxine Sodium [Synthroid] 100 mcg PO DAILY@0500 02/04/15 [History] Simvastatin [Zocor] 40 mg PO DAILY@1700 02/04/15 [History] Aspirin EC [Ecotrin Low Dose] 81 mg PO DAILY@0500 01/16/20 [History] Carvedilol [Coreg] 6.25 mg PO BID@0500,1700 01/16/20 [History] Escitalopram Oxalate [Lexapro] 10 mg PO DAILY@0500 01/16/20 [History] Isosorbide Mononitrate ER [Imdur] 30 mg PO DAILY@0500 01/16/20 [History] Omeprazole [PriLOSEC] 40 mg PO DAILY@0500 01/16/20 [History] Aspirin 325 mg PO BID 30 Days #60 tab 01/18/20 [Rx] Enoxaparin [Lovenox] 40 mg SQ DAILY 10 Days #10 syringe 01/18/20 [Rx] Hydrocodone/Acetaminophen [Tibbie 5-325] 1 tab PO Q6H PRN 7 Days #28 tab 01/18/20 [Rx] Acetaminophen Tab [Tylenol] 650 mg PO Q6H #30 tab 01/19/20 [Rx] Bisacodyl [Dulcolax] 10 mg RECTAL DAILY PRN #20 supp 01/19/20 [Rx] Furosemide [Lasix] 20 mg PO DAILY PRN tab 01/19/20 [Rx] Potassium Chloride [Klor-Con 20] 20 meq PO DAILY #0 01/19/20 [Rx] Sennosides [Senna] 8.6 mg PO DAILY PRN #30 tablet 01/19/20 [Rx] Follow up Appointment(s)/Referral(s): [facility], [NON-STAFF] - 1 Week Tobias Fam DO [Medical Doctor] - 2 Weeks (Patient may follow-up with Dr. Tobias Fma at [facility] in 2-3 weeks following discharge. ) Patient Instructions/Handouts: Acetaminophen (By mouth), Hydrocodone/Acetaminophen (By mouth), Aspirin (By mouth), Enoxaparin (By injection), Bisacodyl (By mouth), Fall Prevention for Older Adults (DC), Acute Wound Care (DC), Surgical Site Infections (DC) Activity/Diet/Wound Care/Special Instructions: Keep wound clean and dry. Take meds as directed. Lovenox 40 mg subcu for 10 days, followed by aspirin 325 mg PO twice a day for 30 days for DVT prophylaxis. Take Tibbie as prescribed for pain control as needed. Follow-up with Dr. Fam in office in two weeks. Weight bear as tolerated on operative leg. Up with assistance, up with a walker. May shower in 3 days if no bleeding. Discussed with patient's primary care physician regarding Plavix. Patient's PCP states Plavix has been prescribed due to cardiology recommendations. Per cardiology, patient can discontinue Plavix on discharge from a cardiology standpoint. Discharge Disposition: HOME WITH HOME HEALTH SERVICES
== END 2020-01-20 15:37 | disposition home health service (06) | DRG 481 ==
LOC: 5NMEDONC 11:24
PROVIDERS: ADMIT Orthopaedic Surgery; ATTEND Orthopaedic Surgery
PROC: 0QS736Z Reposition Left Upper Femur with Intramedullary Internal Fixation Device, Percutaneous Approach (ICD-10-PCS; principal; 2020-01-17 10:30)
PROC: 30233N1 Transfusion of Nonautologous Red Blood Cells into Peripheral Vein, Percutaneous Approach (ICD-10-PCS; 2020-01-19)
DX: S72.142A Displaced intertrochanteric fracture of left femur, initial encounter for closed fracture (principal); D62 Acute posthemorrhagic anemia; I49.5 Sick sinus syndrome; E78.5 Hyperlipidemia, unspecified; E03.9 Hypothyroidism, unspecified; I10 Essential (primary) hypertension; M19.90 Unspecified osteoarthritis, unspecified site; I25.10 Atherosclerotic heart disease of native coronary artery without angina pectoris; I73.9 Peripheral vascular disease, unspecified; R06.02 Shortness of breath; R60.0 Localized edema; K59.00 Constipation, unspecified; I87.2 Venous insufficiency (chronic) (peripheral); W18.30XA Fall on same level, unspecified, initial encounter; Z71.3 Dietary counseling and surveillance; Z79.82 Long term (current) use of aspirin; Z79.890 Hormone replacement therapy; Z79.899 Other long term (current) drug therapy; Z79.02 Long term (current) use of antithrombotics/antiplatelets; Z95.0 Presence of cardiac pacemaker; Z95.5 Presence of coronary angioplasty implant and graft; Z86.73 Personal history of transient ischemic attack (TIA), and cerebral infarction without residual deficits; Z90.710 Acquired absence of both cervix and uterus; Z90.49 Acquired absence of other specified parts of digestive tract; Z96.612 Presence of left artificial shoulder joint; Z87.891 Personal history of nicotine dependence; Z98.890 Other specified postprocedural states; Z86.79 Personal history of other diseases of the circulatory system; Z87.19 Personal history of other diseases of the digestive system; Z88.2 Allergy status to sulfonamides; Z82.49 Family history of ischemic heart disease and other diseases of the circulatory system; Z83.3 Family history of diabetes mellitus
CPT/HCPCS: 71046; 73501; 73502; 85025; 86850; 86900; 86901; 86920; 88305; 93306